=== PATIENT | female | born 1980 | race Caucasian/White ===

== ENCOUNTER 2016-12-15 17:59 | Observation (INO) | payer MEDICAID ==
[~2016-12-15] VITALS: Ht 127 cm; Wt 71.4 kg
[2016-12-15] MEDS ORDERED: OPTIRAY 350 100 ML VIAL HMH IV ONE (18:00)
[2016-12-15] MEDS ORDERED: MORPHINE 4 MG/ML SYR ONE (19:27)
[2016-12-15] MEDS ORDERED: ONDANSETRON ODT 4 MG TAB ONE (21:13)
[2016-12-15] MEDS ORDERED: SODIUM CHLORIDE 0.9% 1,000 ML ONE (21:43)
[2016-12-15] MEDS ORDERED: SODIUM CHLORIDE 0.9% 1,000 ML IV SCH (22:20)
[2016-12-15] MEDS ORDERED: BISACODYL 10 MG SUPP RECTAL PRN (22:25)
[2016-12-15] MEDS ORDERED: ACETAMINOPHEN 325 MG TAB PO PRN (22:25)
[2016-12-15] MEDS ORDERED: SALINE FLUSH 10 ML FLUSH PRN (22:25)
[2016-12-15] MEDS ORDERED: MAG HYDROX 30 ML UDC PO PRN (22:25)
[2016-12-15] MEDS ORDERED: BISACODYL EC 5 MG TAB PO PRN (22:25)
[2016-12-15 23:05] VITALS: BP_SYST 158; RESP 16; TEMP 97.8
[2016-12-15] MEDS: MORPHINE 4 MG/ML SYR IV PRN (23:33)
[2016-12-16] VITALS (7 sets, daily range): BP systolic 132–145; RESP 16–18; TEMP 98.1–98.3; Ht 127 cm; Wt 71.4 kg
[2016-12-16] MEDS: ONDANSETRON 4 MG VIAL IV PUSH PRN ×2 (01:10→12:23)
[2016-12-16] MEDS: MORPHINE 4 MG/ML SYR IV PRN ×3 (04:24→16:15)
[2016-12-16] MEDS ORDERED: SODIUM CHLORIDE 0.9% FLUSH BAG 500 ML IV SCH (06:00)
[2016-12-16] MEDS ORDERED: SALINE FLUSH 10 ML FLUSH SCH (08:00)
== END 2016-12-16 14:30 | disposition home or self-care (01) ==
LOC: ER 17:59 → ENPENDDIS 22:19 → EMR 22:19 → 5THW 23:03
PROVIDERS: ADMIT Family Medicine; ATTEND Family Medicine
DX: S36.112A Contusion of liver, initial encounter (principal); W06.XXXA Fall from bed, initial encounter; Y92.003 Bedroom of unspecified non-institutional (private) residence as the place of occurrence of the external cause; S16.1XXA Strain of muscle, fascia and tendon at neck level, initial encounter
CPT/HCPCS: 36415; 71260; 72050; 74160; 80048; 80053; 80307; 81003; 84703; 85025; 94799; 96361; 96374